=== PATIENT | male | born 2000 | race Caucasian/White ===

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

== ENCOUNTER 2019-06-11 15:14 | Emergency (ER) | payer BC, OTHER ==
[~2019-06-11] VITALS: Ht 173 cm; Wt 63.7 kg
[2019-06-11] MEDS ORDERED: ONDANSETRON 4 MG/2 ML (SDV) Z0FRAN IVP ONE (15:30)
[2019-06-11] MEDS ORDERED: KETOROLAC 15 MG/ML VIAL IVP ONE (15:30)
[2019-06-11] MEDS ORDERED: RT-ALBUTEROL/IPRATROPIUM 3 ML (DUONEB) VIAL INH ONE (15:30)
[2019-06-11] MEDS ORDERED: LORazepam INJ 2 MG/ML (ATIVAN) VIAL IVP ONE (15:30)
[2019-06-11] MEDS ORDERED: ASPIRIN 81 MG CHEW (CHILDREN'S ASA) PO ONE (15:30)
[2019-06-11 15:35] LABS: HEMATOCRIT 43 % (40-54); HEMOGLOBIN 15.4 G/DL (13.3-17.7); MEAN CORPUSCULAR HEMOGLOBIN 30 PG (25-34); MEAN CORPUSCULAR VOLUME 86 FL (80-99); WHITE BLOOD COUNT 8.3 10^3/uL (4.3-11.0)
[2019-06-11 15:36] LABS: BASOPHILS % (AUTO) 1 % (0-10); EOSINOPHILS % (AUTO) 1 % (0-10); LYMPHOCYTES # (AUTO) 1.3 X 10^3 (1.0-4.0); LYMPHOCYTES % (AUTO) 16 % (12-44); MEAN CORPUSCULAR HGB CONC 36 G/DL (32-36); MEAN PLATELET VOLUME 8.9 FL (7.4-10.4); MONOCYTES # (AUTO) 0.8 X 10^3 (0.0-1.0); MONOCYTES % (AUTO) 9 % (0-12); NEUTROPHILS # (AUTO) 6.1 X 10^3 (1.8-7.8); NEUTROPHILS % (AUTO) 74 % (42-75); PLATELET COUNT 244 10^3/uL (130-400); RED CELL DISTRIBUTION WIDTH 12.6 % (10.0-14.5)
--- NOTE | 2019-06-11 15:41 | Diagnostic Imaging Report ---
INDICATION: Shortness of breath and chest pain. Portable chest 3:28 PM Heart size and pulmonary vascularity are normal. Lungs are clear. There are no effusions or pneumothoraces. IMPRESSION: Negative chest. Dictated by: Dictated on workstation # [id number]
[2019-06-11 16:14] LABS: BUN/CREATININE RATIO 17; CARBON DIOXIDE 24 MMOL/L (21-32); CHLORIDE 104 MMOL/L (98-107); GFR ESTIMATED > 60; GLUCOSE 113 MG/DL (70-105); POTASSIUM 3.8 MMOL/L (3.6-5.0); SODIUM 142 MMOL/L (135-145)
[2019-06-11 16:15] LABS: ALANINE AMINOTRANSFERASE 475 U/L (0-55); ALBUMIN 4.9 GM/DL (3.2-4.5); ALKALINE PHOSPHATASE 110 U/L (40-136); BILIRUBIN,TOTAL 0.9 MG/DL (0.1-1.0); CALCIUM 9.6 MG/DL (8.5-10.1); TOTAL PROTEIN 7.8 GM/DL (6.4-8.2)
--- NOTE | 2019-06-11 16:21 | ED General ---
General Chief Complaint: Chest Pain Stated Complaint: CHEST PAIN/PRESSURE Nursing Triage Note: Patient reports chest pain/pressure, nausea, and shortness of breath when laying supine and moving for 2 days. Nursing Sepsis Screen: No Definite Risk History of Present Illness Date Seen by Provider: Jun 11, 2019 Time Seen by Provider: 16:19 Initial Comments Patient presenting to the emergency department for evaluation of chest pressure nausea and shortness of breath when laying flat for the past 2 days. He says the pressure sensation as they're all the time but feels much more intense when he is lying flat. He says that exertion does not make his symptoms worse and neither does eating. He says that he saw his provider today and was prescribed medications that he thinks are for anxiety. He denies any vomiting diaphoresis abdominal pain fevers chills or diarrhea. He takes no medications on a regular basis and denies any medical problems. No history of sudden in his family. He is in no obvious distress with normal vital signs. Allergies and Home Medications Allergies Coded Allergies: No Known Drug Allergies (Unverified , 06/11/19) Patient Home Medication List Home Medication List Reviewed: Yes Review of Systems Review of Systems Constitutional: no symptoms reported EENTM: no symptoms reported Respiratory: short of breath Cardiovascular: chest pain Gastrointestinal: nausea Genitourinary: no symptoms reported Musculoskeletal: no symptoms reported Skin: no symptoms reported Psychiatric/Neurological: No Symptoms Reported All Other Systems Reviewed Negative Unless Noted: Yes Past Wgthxdr-Qnywhh-Zzbmmw Hx Patient Social History Alcohol Use: Denies Use Recreational Drug Use: No Smoking Status: Never a Smoker 2nd Hand Smoke Exposure: No Recent Foreign Travel: No Contact w/Someone Who Travel: No Recent Infectious Disease Expo: No Recent Hopitalizations: No Physical Abuse: No Sexual Abuse: No Mistreated: No Fear: No Seasonal Allergies Seasonal Allergies: No Past Medical History Surgeries: Yes (right ulnar nerve April 2019) Respiratory: No Cardiac: No Neurological: No Genitourinary: No Gastrointestinal: No Musculoskeletal: No Endocrine: No HEENT: No Cancer: No Psychosocial: No Integumentary: No Physical Exam Vital Signs Vital Signs - First Documented Capillary Refill : Less Than 3 Seconds Height, Weight, BMI Height: '" Weight: lbs. oz. kg; 21.00 BMI Method: General Appearance: No Apparent Distress, WD/WN HEENT: PERRL/EOMI Neck: Supple Respiratory: No Respiratory Distress, Decreased Breath Sounds Cardiovascular: Regular Rate, Rhythm Gastrointestinal: Non Tender, Soft Back: Normal Inspection Extremity: Normal Capillary Refill Neurologic/Psychiatric: Alert, Oriented x3 Skin: Warm/Dry Progress/Results/Core Measures Suspected Sepsis Recent Fever Within 48 Hours: No Infection Criteria Present: None New/Unexplained Altered Menta: No Sepsis Screen: No Definite Risk SIRS Temperature: Pulse: 99 Respiratory Rate: 20 Laboratory Tests 06/11/19 15:25: White Blood Count 8.3 Blood Pressure 143 /87 Mean: 105 Laboratory Tests 06/11/19 15:25: Creatinine 1.00, Platelet Count 244, Total Bilirubin 0.9 Results/Orders Lab Results Laboratory Tests Test 06/11/19 15:25 Range/Units White Blood Count 8.3 4.3-11.0 10^3/uL Red Blood Count 5.06 4.35-5.85 10^6/uL Hemoglobin 15.4 13.3-17.7 G/DL Hematocrit 43 40-54 % Mean Corpuscular Volume 86 80-99 FL Mean Corpuscular Hemoglobin 30 25-34 PG Mean Corpuscular Hemoglobin Concent 36 32-36 G/DL Red Cell Distribution Width 12.6 10.0-14.5 % Platelet Count 244 130-400 10^3/uL Mean Platelet Volume 8.9 7.4-10.4 FL Neutrophils (%) (Auto) 74 42-75 % Lymphocytes (%) (Auto) 16 12-44 % Monocytes (%) (Auto) 9 0-12 % Eosinophils (%) (Auto) 1 0-10 % Basophils (%) (Auto) 1 0-10 % Neutrophils # (Auto) 6.1 1.8-7.8 X 10^3 Lymphocytes # (Auto) 1.3 1.0-4.0 X 10^3 Monocytes # (Auto) 0.8 0.0-1.0 X 10^3 Eosinophils # (Auto) 0.0 0.0-0.3 10^3/uL Basophils # (Auto) 0.0 0.0-0.1 10^3/uL D-Dimer < 0.27 0.00-0.49 UG/ML Sodium Level 142 135-145 MMOL/L Potassium Level 3.8 3.6-5.0 MMOL/L Chloride Level 104 98-107 MMOL/L Carbon Dioxide Level 24 21-32 MMOL/L Anion Gap 14 5-14 MMOL/L Blood Urea Nitrogen 17 7-18 MG/DL Creatinine 1.00 0.60-1.30 MG/DL Estimat Glomerular Filtration Rate > 60 BUN/Creatinine Ratio 17 Glucose Level 113 H 70-105 MG/DL Calcium Level 9.6 8.5-10.1 MG/DL Corrected Calcium 8.5-10.1 MG/DL Total Bilirubin 0.9 0.1-1.0 MG/DL Aspartate Amino Transf (AST/SGOT) 108 H 5-34 U/L Alanine Aminotransferase (ALT/SGPT) 475 H 0-55 U/L Alkaline Phosphatase 110 40-136 U/L Troponin I < 0.30 <0.30 NG/ML Total Protein 7.8 6.4-8.2 GM/DL Albumin 4.9 H 3.2-4.5 GM/DL My Orders Orders - ORQUIDEA METZGER DO Cbc With Automated Diff (06/11/19 15:22) Comprehensive Metabolic Panel (06/11/19 15:22) Troponin I Fs (06/11/19 15:22) Fibrin Degradation Products (06/11/19 15:22) Ekg Tracing (06/11/19 15:22) Chest 1 View Ap/Pa Only (06/11/19 15:22) Lorazepam Injection (Ativan Injection) (06/11/19 15:30) Albuterol/Ipra Inhalation Soln (Duoneb I (06/11/19 15:30) Ketorolac Injection (Toradol Injection) (06/11/19 15:30) Ondansetron Injection (Zofran Injectio (06/11/19 15:30) Aspirin Chewable Tablet (Baby Aspirin Ch (06/11/19 15:30) Svn Small Volume Nebulizer (06/11/19 15:22) Ns Iv 1000 Ml (Sodium Chloride 0.9%) (06/11/19 16:30) Medications Given in ED Current Medications Medications Dose Ordered Sig/Bhupinder Route Start Time Stop Time Status Last Admin Dose Admin Albuterol/ Ipratropium 3 ml ONCE ONCE INH 06/11/19 15:30 06/11/19 15:31 DC 06/11/19 15:30 3 ML Aspirin 324 mg ONCE ONCE PO 06/11/19 15:30 06/11/19 15:31 DC 06/11/19 15:30 324 MG Ketorolac Tromethamine 15 mg ONCE ONCE IVP 06/11/19 15:30 06/11/19 15:31 DC 06/11/19 15:32 15 MG Lorazepam 1 mg ONCE ONCE IVP 06/11/19 15:30 06/11/19 15:31 DC 06/11/19 15:31 1 MG Ondansetron HCl 4 mg ONCE ONCE IVP 06/11/19 15:30 06/11/19 15:31 DC 06/11/19 15:30 4 MG Vital Signs/I&O 06/11/19 06/11/19 15:15 15:15 Temp 36.1 Pulse 99 Resp 20 B/P (MAP) 143/87 (105) Pulse Ox 97 O2 Delivery Room Air Room Air Capillary Refill : Less Than 3 Seconds Blood Pressure Mean: 105 Progress Note : Progress Note Differential diagnosis includes pericarditis given the description of the symptoms. Bronchospasm anxiety or GI causes are possibilities as well. Laboratory workup came back normal except for findings of transaminitis. Chest x-ray appears normal. I asked patient about Tylenol use and he says he takes Tylenol PM every night. Says he does not drink alcohol. I told him that he may need to have further testing done on his liver including imaging and further testing of his liver including hepatitis panel which we cannot do here. I told him to stop taking Tylenol for now and follow-up with his primary care provider within 2-3 days or early next week. His heart score is equal to 0 and he appears well with normal vital signs. He says that the breathing treatment made him feel better more than anything else and he does not have the pressure any longer. He certainly could have bronchospasm causing his symptoms. I told him that I'll prescribe him an inhaler and write him for ibuprofen and told to start the 2 medications are prescribed for him today follow-up as soon as possible and come back to the ED sooner with worsening pain shortness of breath with or general concerns. Patient aware and agreeable with plan for discharge and verbalized understanding of the above instructions. Departure Impression Primary Impression: Chest pain Additional Impressions: Bronchospasm Transaminitis Disposition: 01 HOME, SELF-CARE Condition: Stable Departure-Patient Inst. Referrals: NO,LOCAL PHYSICIAN (PCP/Family) Primary Care Physician Patient Instructions: Chest Pain (DC) Add. Discharge Instructions: Stop taking Tylenol. Follow with PCP. Come back with any concerns. All discharge instructions reviewed with patient and/or family. Voiced understanding. Scripts Ibuprofen (Ibuprofen) 400 Mg Tablet 400 MG PO Q8H PRN for PAIN-SEVERE (8-10) MDD 1200 MG for 7 Days, TAB Prov: ORQUIDEA METZGER DO 06/11/19 Albuterol Sulfate (PROAIR HFA) 1 Puff Puff 2 PUFF IH Q4H, #1 INHALER 1 PUFF = 90 MCG Prov: ORQUIDEA METZGER DO 06/11/19 ORQUIDEA METZGER DO Jun 11, 2019 16:21
[2019-06-11] MEDS ORDERED: NS IV 1000 ML 1,000 ML IV SCH (16:30)
[2019-06-11] MEDS ORDERED: IBUP-1779 PO (16:56)
[2019-06-11] MEDS ORDERED: RT-ALBUINH IH (16:56)
[2019-06-11 17:09] VITALS: BP 113/70
== END 2019-06-11 17:05 | disposition home or self-care (01) ==
LOC: EDUNIT# 15:14 → ER FS 15:15
DX: J98.01 Acute bronchospasm (principal); R74.0 Nonspecific elevation of levels of transaminase and lactic acid dehydrogenase [LDH]; F41.9 Anxiety disorder, unspecified
CPT/HCPCS: 36415; 71045; 80053; 84484; 85025; 85379; 93005

== ENCOUNTER 2019-06-16 17:24 | Emergency (ER) | payer BC, OTHER ==
[~2019-06-16] VITALS: Ht 174 cm; Wt 64.5 kg
[~2019-06-16 17:24] MED LIST: IBUP-1779 PO; RT-ALBUINH IH
[2019-06-16] MEDS ORDERED: LORazepam 0.5 MG (ATIVAN) TABLET PO STA (17:34)
[2019-06-16] MEDS ORDERED: HYDR50CA3 PO (17:39)
--- NOTE | 2019-06-16 17:48 | Diagnostic Imaging Report ---
INDICATION: Chest pain. Comparison made with prior examination 06/11/2019. PA and lateral views were obtained. FINDINGS: The heart size, mediastinal configuration, and pulmonary vascularity are within normal limits. There is no pleural effusion, pneumothorax, or pneumonia. The osseous structures are unremarkable. IMPRESSION: No acute cardiopulmonary abnormality. Dictated by: Dictated on workstation # [id number]
--- NOTE | 2019-06-16 19:01 | ED General ---
General Chief Complaint: Chest Pain Stated Complaint: CHEST PAIN Nursing Triage Note: Patient reports sharp chest pain feeling like he can't catch his breath. Nursing Sepsis Screen: No Definite Risk Source of Information: Patient History of Present Illness Date Seen by Provider: Jun 16, 2019 Time Seen by Provider: 19:00 Initial Comments 18 yo M presents with recurrent pleuritic chest pain. He states that he has had continued pain ever since he was seen. He has increased pain when he tries to take a deep breath. He feels like he can't breathe at times. It seems worse when he lays back. He has some nausea but no vomiting. He also has been having some diarrhea. He has epigastric abdominal pain. He has been feeling short of breath with this. He denies any pain or swelling in his legs. He did have recent surgery in April for his elbow. He feels dizzy and lightheaded especially want he changes positions Allergies and Home Medications Allergies Coded Allergies: No Known Drug Allergies (Unverified , 06/11/19) Home Medications Albuterol Sulfate 1 Puff Puff, 2 PUFF IH Q4H 1 PUFF = 90 MCG Prescribed by: ORQUIDEA METZGER on 06/11/19 165 Dicyclomine HCl 20 Mg Tablet, 20 MG PO Q6H Prescribed by: DEBBY Lockhart ENYART on 06/16/192211 Ibuprofen 400 Mg Tablet, 400 MG PO Q8H PRN for PAIN-SEVERE (8-10) Prescribed by: ORQUIDEA METZGER on 06/11/19 165 Ondansetron 4 Mg Tab.rapdis, 4 MG PO Q6H PRN for NAUSEA/VOMITING Prescribed by: DEBBY CHRISTIEYART on 06/16/192211 Pantoprazole Sodium 40 Mg Tablet.dr, 40 MG PO DAILY Prescribed by: DEBBY Lockhart ENYART on 06/16/192211 Prednisone 20 Mg Tab, 40 MG PO DAILY Prescribed by: DEBBY ANGLINRT on 06/16/192211 Patient Home Medication List Home Medication List Reviewed: Yes Review of Systems Review of Systems Constitutional: see HPI; No chills, No diaphoresis; dizziness (especially with changing positions); No fever; malaise, weakness EENTM: no symptoms reported Respiratory: No cough, No hemoptysis; short of breath; No stridor, No wheezing Cardiovascular: chest pain (pleuritic chest pain); No edema, No palpitations Gastrointestinal: abdominal pain (epigastric), diarrhea, nausea; No vomiting Genitourinary: No dysuria, No frequency, No pain Musculoskeletal: no symptoms reported Skin: No rash Psychiatric/Neurological: Anxiety; Denies Headache Hematologic/Lymphatic: No Symptoms Reported Immunological/Allergic: no symptoms reported Past Dtiwqmi-Ejujmv-Hiiziq Hx Past Med/Social Hx: Reviewed Nursing Past Med/Soc Hx Patient Social History Alcohol Use: Denies Use Recreational Drug Use: No 2nd Hand Smoke Exposure: No Recent Foreign Travel: No Contact w/Someone Who Travel: No Recent Infectious Disease Expo: No Recent Hopitalizations: No Seasonal Allergies Seasonal Allergies: No Past Medical History Surgeries: Yes (right ulnar nerve April 2019) Respiratory: No Cardiac: No Neurological: No Genitourinary: No Gastrointestinal: No Musculoskeletal: No Endocrine: No HEENT: No Cancer: No Psychosocial: Yes Anxiety Integumentary: No Blood Disorders: No Physical Exam Vital Signs Vital Signs - First Documented 06/16/19 06/16/19 17:38 17:41 Temp 36.6 Pulse 123 Resp 18 B/P (MAP) 140/97 (111) Pulse Ox 98 O2 Delivery Room Air Capillary Refill : Less Than 3 Seconds Height, Weight, BMI Height: '" Weight: lbs. oz. kg; 21.00 BMI Method: General Appearance: WD/WN, Mild Distress HEENT: PERRL/EOMI, Normal ENT Inspection, Pharynx Normal; No Tonsillar Exudate, No Tonsillar Enlargement Neck: Full Range of Motion, Normal Inspection, Non Tender, Supple; No Carotid Bruit Respiratory: Chest Non Tender, Lungs Clear, Normal Breath Sounds, No Accessory Muscle Use, No Respiratory Distress Cardiovascular: Normal Peripheral Pulses, Systolic Murmur (3/6 systolic ejection murmur), Tachycardia Gastrointestinal: Normal Bowel Sounds, No Pulsatile Mass, Soft; No Distended, No Guarding, No Mass, No Rebound; Tenderness (epigastric) Rectal: Deferred Extremity: Normal Capillary Refill, Normal Inspection, No Pedal Edema Neurologic/Psychiatric: Alert, Oriented x3, No Motor/Sensory Deficits, Normal Mood/Affect, manufacturing tech II-XII Norm as Tested Skin: Normal Color, Warm/Dry Progress/Results/Core Measures Suspected Sepsis Recent Fever Within 48 Hours: No Infection Criteria Present: None New/Unexplained Altered Menta: No Sepsis Screen: No Definite Risk SIRS Temperature: Pulse: 123 Respiratory Rate: 18 Laboratory Tests 06/16/19 19:20: White Blood Count 8.6 Blood Pressure 140 /97 Mean: 111 Laboratory Tests 06/16/19 19:20: Creatinine 0.76, INR Comment 1.0, Platelet Count 253, Total Bilirubin 1.3H Results/Orders Lab Results Laboratory Tests Test 06/16/19 19:20 Range/Units White Blood Count 8.6 4.3-11.0 10^3/uL Red Blood Count 4.98 4.35-5.85 10^6/uL Hemoglobin 15.2 13.3-17.7 G/DL Hematocrit 42 40-54 % Mean Corpuscular Volume 84 80-99 FL Mean Corpuscular Hemoglobin 31 25-34 PG Mean Corpuscular Hemoglobin Concent 36 32-36 G/DL Red Cell Distribution Width 12.5 10.0-14.5 % Platelet Count 253 130-400 10^3/uL Mean Platelet Volume 8.6 7.4-10.4 FL Neutrophils (%) (Auto) 72 42-75 % Lymphocytes (%) (Auto) 16 12-44 % Monocytes (%) (Auto) 10 0-12 % Eosinophils (%) (Auto) 1 0-10 % Basophils (%) (Auto) 0 0-10 % Neutrophils # (Auto) 6.2 1.8-7.8 X 10^3 Lymphocytes # (Auto) 1.4 1.0-4.0 X 10^3 Monocytes # (Auto) 0.9 0.0-1.0 X 10^3 Eosinophils # (Auto) 0.1 0.0-0.3 10^3/uL Basophils # (Auto) 0.0 0.0-0.1 10^3/uL Prothrombin Time 13.9 12.2-14.7 SEC INR Comment 1.0 0.8-1.4 Activated Partial Thromboplast Time 27 24-35 SEC Sodium Level 132 L 135-145 MMOL/L Potassium Level 3.2 L 3.6-5.0 MMOL/L Chloride Level 93 L 98-107 MMOL/L Carbon Dioxide Level 22 21-32 MMOL/L Anion Gap 17 H 5-14 MMOL/L Blood Urea Nitrogen 6 L 7-18 MG/DL Creatinine 0.76 0.60-1.30 MG/DL Estimat Glomerular Filtration Rate > 60 BUN/Creatinine Ratio 8 Glucose Level 104 70-105 MG/DL Calcium Level 8.9 8.5-10.1 MG/DL Corrected Calcium 8.5-10.1 MG/DL Magnesium Level 1.8 1.6-2.4 MG/DL Total Bilirubin 1.3 H 0.1-1.0 MG/DL Aspartate Amino Transf (AST/SGOT) 95 H 5-34 U/L Alanine Aminotransferase (ALT/SGPT) 335 H 0-55 U/L Alkaline Phosphatase 101 40-136 U/L Troponin I < 0.30 <0.30 NG/ML Pro-B-Type Natriuretic Peptide 10.0 <75.0 PG/ML Total Protein 7.6 6.4-8.2 GM/DL Albumin 4.9 H 3.2-4.5 GM/DL Lipase 31 8-78 U/L My Orders Orders - ENYARTDEBBY MD Cbc With Automated Diff (06/16/19 19:15) Magnesium (06/16/19 19:15) Comprehensive Metabolic Panel (06/16/19 19:15) Protime With Inr (06/16/19 19:15) Partial Thromboplastin Time (06/16/19 19:15) O2 (06/16/19 19:15) Monitor-Rhythm Ecg Trace Only (06/16/19 19:15) Ed Iv/Invasive Line Start (06/16/19 19:15) Lipase (06/16/19 19:15) Troponin I Fs (06/16/19 19:15) Probnp Fs (06/16/19 19:15) Ns Iv 1000 Ml (Sodium Chloride 0.9%) (06/16/19 19:15) Ondansetron Injection (Zofran Injectio (06/16/19 19:15) Fentanyl Injection (Sublimaze Injection (06/16/19 19:15) Ct [place] Chest/Noang Abd-Pelv W (06/16/19 19:15) Iohexol Injection (Omnipaque 350 Mg/Ml 1 (06/16/19 19:30) Received Contrast (Hold Metformin- Contr (06/16/19 19:30) Sodium Chloride Flush (Catheter Flush Sy (06/16/19 19:30) Ns (Ivpb) (Sodium Chloride 0.9% Ivpb Bag (06/16/19 19:30) Methylprednisolone Sod Succ (Solu-Medrol (06/16/19 22:02) Rx-Hydrocodone/Apap 5-325 Mg (Rx-Vicodin (06/16/19 22:15) Medications Given in ED Current Medications Medications Dose Ordered Sig/Bhupinder Route Start Time Stop Time Status Last Admin Dose Admin Acetaminophen/ Hydrocodone Bitart 1 ea Q6H PRN PO 06/16/19 22:15 06/16/19 22:21 DC 06/16/19 22:09 1 EA Iohexol 100 ml ONCE ONCE IV 06/16/19 19:30 06/16/19 19:31 DC 06/16/19 19:40 100 ML Sodium Chloride 10 ml NEEDED PRN IV 06/16/19 19:30 06/16/19 22:21 DC 06/16/19 19:40 10 ML Sodium Chloride 100 ml ONCE ONCE IV 06/16/19 19:30 06/16/19 19:31 DC 06/16/19 19:40 80 ML Vital Signs/I&O 06/16/19 06/16/19 06/16/19 17:38 17:41 22:22 Temp 36.6 Pulse 123 98 Resp 18 18 B/P (MAP) 140/97 (111) 138/76 Pulse Ox 98 100 O2 Delivery Room Air Room Air Capillary Refill : Less Than 3 Seconds Blood Pressure Mean: 111 Progress Note #1: Progress Note Electrocardiogram and chest x-ray from dayshift were reviewed. Add on blood work and CT scan of the chest to evaluate for blood clot as well as CT of the abdomen and pelvis with contrast to evaluate his diarrhea and elevated liver enzymes with epigastric pain. Give IV fluids for hydration since his heart rate does go up with change in position and some of his symptoms are consistent with dehydration and orthostasis. Zofran for nausea. Fentanyl for pain Progress Note #2: Progress Note Reviewed with the patient that the labs and CT scan were not showing any acute significant abnormality change from his recent visit. He had no signs of blood clots or pneumonia or effusion on his CT scan chest. His CT of the abdomen and pelvis was not showing any acute findings. His blood work appeared stable from his recent visit with mild improvement of his BLT and AST. He did have mild elevation of his total bilirubin however his liver and gallbladder all appeared within normal limits on the CT scan. Patient stated that he was feeling better with treatment here in the ED. His pain was down to 3 out of 10 and although has not gone it was significantly improved. Counseled that while he had no specific diagnosis from testing here several life threatening diagnosis were ruled out. Advised to check with the clinic and that he might need to see cardiology or GI. He may need to have testing such as a scope to look at the lying of his stomach and esophagus or testing to look at his gallbladder. He may also need to have cardiology testing to look into his pleuritic chest pain. Will change to a steroid for increased anti-inflammatory effect. Use a proton pump inhibitor for possible acid reflux symptoms. Zofran for nausea. Bentyl for pain and diarrhea. Send with a few hydrocodone for more severe pain. Counseled that he would need to follow-up through the clinic for more advanced testing t wood what was available through the emergency department ECG Initial ECG Impression Date: Jun 16, 2019 Initial ECG Impression Time: 17:32 Initial ECG Rate: 120 Initial ECG Rhythm: S.Tach Comment Sinus tachycardia with a heart rate of 120 beats for minute. No acute ST elevation. CT interval 171 ms. QT interval 307 ms and a QTc interval 434 ms. No prior tracing available for comparison. Diagnostic Imaging Diagonstic Imaging: Xray Plain Films/CT/US/NM/MRI: chest Comments [facility]. [place], [place] NAME: ALDAIR LUNA [facility] REC#: [id number] PT STATUS: REG ER : 2000 PHYSICIAN: CUCO VALLEJO MD ADMIT DATE: 06/16/19/ER FS Signed Date of Exam:06/16/19 CHEST PA/LAT (2 VIEW) INDICATION: Chest pain. Comparison made with prior examination 06/11/2019. PA and lateral views were obtained. FINDINGS: The heart size, mediastinal configuration, and pulmonary vascularity are within normal limits. There is no pleural effusion, pneumothorax, or pneumonia. The osseous structures are unremarkable. IMPRESSION: No acute cardiopulmonary abnormality. Dictated by: Dictated on workstation # [id number] Dict: 06/16/19 1746 Trans: 06/16/19 1836 [id number] Interpreted by: VON BERRY MD Electronically signed by: VON BERRY MD 06/16/19 1836 Diagonstic Imaging: CT Plain Films/CT/US/NM/MRI: chest, abdomen, pelvis Comments [facility]. [place], [place] NAME: ALDAIR LUNA [facility] REC#: [id number] PT STATUS: REG ER : 2000 PHYSICIAN: DEBBY WORRELL MD ADMIT DATE: 06/16/19/ER FS Signed Date of Exam:06/16/19 CT CAROLIN CHEST/NOANG ABD-PELV W INDICATION: Chest pain and recent surgery TECHNIQUE: Multiple contiguous axial images were obtained through the chest, abdomen, and pelvis after the uneventful bolus administration of intravenous contrast. MIP reconstructions were then performed. FINDINGS: There are no primary nodules, masses, or infiltrates. There is no pleural or pericardial fluid. There is no pneumothorax. There is no pathologically enlarged adenopathy in the chest. The thoracic aorta is normal in caliber and without evidence of dissection. There are no filling defects seen within the pulmonary arteries to suggest a pulmonary embolism. The visualized intraabdominal structures are unremarkable. The osseous structures are unremarkable. The liver is normal in size without focal lesions. Gallbladder is unremarkable. There is no biliary duct dilatation. Spleen is normal. Pancreas and adrenal glands are unremarkable. Kidneys are normal in appearance. The aorta is nonaneurysmal. Bowel gas pattern is nonspecific. There is no free air. There is no ascites. There are no focal inflammatory changes. Bladder is normal. There is no pelvic mass, adenopathy or free fluid. There is bilateral spondylolysis at L5 with slight anterolisthesis of L5 on S1. The osseous structures are otherwise unremarkable. IMPRESSION: No acute abnormality in the chest. Specifically, there is no evidence of a pulmonary embolism or aortic dissection. 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 No acute abnormality in the abdomen or pelvis. Dictated by: Dictated on workstation # [id number] Dict: 06/16/192005 Trans: 06/16/192016 JOSUÉ [id number] Interpreted by: VON BERRY MD Electronically signed by: VON BERRY MD 06/16/19 2017 Departure Impression Primary Impression: Pleuritic chest pain Additional Impressions: Elevated LFTs Epigastric abdominal pain Diarrhea Qualified Codes: R19.7 - Diarrhea, unspecified Nausea alone Dehydration Disposition: 01 HOME, SELF-CARE Condition: Improved Departure-Patient Inst. Decision time for Depature: 22:05 Referrals: MAKENZIE DODGE MD FACP FACC CCDS NO,LOCAL PHYSICIAN (PCP) Primary Care Physician [facility] Patient Instructions: Acute Abdomen (Belly Pain), Adult (DC), Dehydration, Adult (DC), Diarrhea in Adolescents and Adults, Nausea and Vomiting, Adult (DC), Pleuritic Chest Pain (DC) Add. Discharge Instructions: Stay well hydrated and drink plenty of water or electrolyte drinks Use the medicine for acid and nausea to help with stomach pain and nausea Use the steroid to help with inflammation and pleuritic sharp chest pains. Check with clinic and if still having problems you may need to have tests to look at the lining of your stomach, the function of your gallbladder, or see cardiology for testing of your heart. All discharge instructions reviewed with patient and/or family. Voiced underst anding. Scripts Ondansetron (Ondansetron Odt) 4 Mg Tab.rapdis 4 MG PO Q6H PRN for NAUSEA/VOMITING for 2 Days, #8 TAB 0 Refills Prov: DEBBY WORRELL MD 06/16/19 Dicyclomine HCl (Dicyclomine HCl) 20 Mg Tablet 20 MG PO Q6H for abdominal pain/diarrhea for 7 Days, #30 TAB 0 Refills Prov: DEBBY WORRELL MD 06/16/19 Prednisone (Prednisone) 20 Mg Tab 40 MG PO DAILY for pleuritic chest pain for 5 Days, #10 TAB 0 Refills Prov: DEBBY WORRELL MD 06/16/19 Pantoprazole Sodium (Pantoprazole Sodium) 40 Mg Tablet.dr 40 MG PO DAILY for stomach pain/acid for 30 Days, #30 TAB 0 Refills Prov: DEBBY WORRELL MD 06/16/19 DEBBY WORRELL MD Jun 16, 2019 19:01
[2019-06-16] MEDS ORDERED: ONDANSETRON 4 MG/2 ML (SDV) Z0FRAN IVP STA (19:15)
[2019-06-16] MEDS ORDERED: NS IV 1000 ML 1,000 ML IV STA (19:15)
[2019-06-16] MEDS ORDERED: fentaNYL INJECTION 100 MCG/2 ML AMP IVP STA (19:15)
[2019-06-16] MEDS ORDERED: CATHETER FLUSH 10 ML SYR IV PRN (19:30)
[2019-06-16] MEDS ORDERED: IOHEXOL 350 MG/ML 100 ML (OMNIPAQUE 350) VIAL IV ONE (19:30)
[2019-06-16] MEDS ORDERED: NS 100 ML (IVPB) BAG IV ONE (19:30)
[2019-06-16] MEDS ORDERED: HOLD METFORMIN - RECEIVED CONTRAST 20 ML VIAL IV SCH (19:30)
[2019-06-16 19:31] LABS: BASOPHILS % (AUTO) 0 % (0-10); EOSINOPHILS # (AUTO) 0.1 10^3/uL (0.0-0.3); EOSINOPHILS % (AUTO) 1 % (0-10); HEMATOCRIT 42 % (40-54); HEMOGLOBIN 15.2 G/DL (13.3-17.7); LYMPHOCYTES # (AUTO) 1.4 X 10^3 (1.0-4.0); LYMPHOCYTES % (AUTO) 16 % (12-44); MEAN CORPUSCULAR HEMOGLOBIN 31 PG (25-34); MEAN CORPUSCULAR HGB CONC 36 G/DL (32-36); MEAN CORPUSCULAR VOLUME 84 FL (80-99); MEAN PLATELET VOLUME 8.6 FL (7.4-10.4); MONOCYTES # (AUTO) 0.9 X 10^3 (0.0-1.0); MONOCYTES % (AUTO) 10 % (0-12); NEUTROPHILS # (AUTO) 6.2 X 10^3 (1.8-7.8); NEUTROPHILS % (AUTO) 72 % (42-75); PLATELET COUNT 253 10^3/uL (130-400); RED CELL DISTRIBUTION WIDTH 12.5 % (10.0-14.5); WHITE BLOOD COUNT 8.6 10^3/uL (4.3-11.0)
[2019-06-16 19:43] LABS: PROTHROMBIN TIME PATIENT 13.9 SEC (12.2-14.7)
[2019-06-16 19:50] LABS: ALANINE AMINOTRANSFERASE 335 U/L (0-55); ALBUMIN 4.9 GM/DL (3.2-4.5); ALKALINE PHOSPHATASE 101 U/L (40-136); BILIRUBIN,TOTAL 1.3 MG/DL (0.1-1.0); BUN/CREATININE RATIO 8; CALCIUM 8.9 MG/DL (8.5-10.1); CARBON DIOXIDE 22 MMOL/L (21-32); CHLORIDE 93 MMOL/L (98-107); CREATININE SERUM 0.76 MG/DL (0.60-1.30); GFR ESTIMATED > 60; GLUCOSE 104 MG/DL (70-105); LIPASE 31 U/L (8-78); MAGNESIUM 1.8 MG/DL (1.6-2.4); POTASSIUM 3.2 MMOL/L (3.6-5.0); SODIUM 132 MMOL/L (135-145); TOTAL PROTEIN 7.6 GM/DL (6.4-8.2)
--- NOTE | 2019-06-16 20:14 | Diagnostic Imaging Report ---
INDICATION: Chest pain and recent surgery TECHNIQUE: Multiple contiguous axial images were obtained through the chest, abdomen, and pelvis after the uneventful bolus administration of intravenous contrast. MIP reconstructions were then performed. FINDINGS: There are no primary nodules, masses, or infiltrates. There is no pleural or pericardial fluid. There is no pneumothorax. There is no pathologically enlarged adenopathy in the chest. The thoracic aorta is normal in caliber and without evidence of dissection. There are no filling defects seen within the pulmonary arteries to suggest a pulmonary embolism. The visualized intraabdominal structures are unremarkable. The osseous structures are unremarkable. The liver is normal in size without focal lesions. Gallbladder is unremarkable. There is no biliary duct dilatation. Spleen is normal. Pancreas and adrenal glands are unremarkable. Kidneys are normal in appearance. The aorta is nonaneurysmal. Bowel gas pattern is nonspecific. There is no free air. There is no ascites. There are no focal inflammatory changes. Bladder is normal. There is no pelvic mass, adenopathy or free fluid. There is bilateral spondylolysis at L5 with slight anterolisthesis of L5 on S1. The osseous structures are otherwise unremarkable. IMPRESSION: No acute abnormality in the chest. Specifically, there is no evidence of a pulmonary embolism or aortic dissection. 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 No acute abnormality in the abdomen or pelvis. Dictated by: Dictated on workstation # [id number]
[2019-06-16] MEDS ORDERED: methylPREDNISolone 125 MG (Solu-MEDROL) VIAL IVP STA (22:02)
[2019-06-16] MEDS ORDERED: PANT40TA3 PO (22:12)
[2019-06-16] MEDS ORDERED: PRD20T PO (22:12)
[2019-06-16] MEDS ORDERED: ONDA4TAB11 PO (22:12)
[2019-06-16] MEDS ORDERED: DICY20TA10 PO (22:12)
[2019-06-16] MEDS ORDERED: RX-HYDROCODONE/APAP 5/325 MG #4 TAB PK PO PRN (22:15)
[2019-06-16 22:22] VITALS: BP 138/76
[2019-06-19] MEDS ORDERED: ACHD5005 PO (10:34)
== END 2019-06-16 22:20 | disposition home or self-care (01) ==
LOC: EDUNIT# 17:24 → ER FS 17:24
DX: R07.81 Pleurodynia (principal); R10.13 Epigastric pain; R19.7 Diarrhea, unspecified; R11.0 Nausea; E86.0 Dehydration; R94.5 Abnormal results of liver function studies
CPT/HCPCS: 36415; 71046; 71275; 74177; 80053; 83690; 83735; 83880; 84484; 85025; 85610; 85730; 93005; 93041

== ENCOUNTER 2019-06-18 17:50 | Observation (INO) | payer BC, OTHER ==
[~2019-06-18] VITALS: Ht 175.2 cm; Wt 61.3 kg
[~2019-06-18 17:50] MED LIST changes: +DICY20TA10 PO; +HYDR50CA3 PO; +ONDA4TAB11 PO; +PANT40TA3 PO; +PRD20T PO
[2019-06-18 18:36] LABS: BASOPHILS % (AUTO) 0 % (0-10); EOSINOPHILS % (AUTO) 0 % (0-10); HEMATOCRIT 43 % (40-54); HEMOGLOBIN 15.3 G/DL (13.3-17.7); LYMPHOCYTES # (AUTO) 1.4 X 10^3 (1.0-4.0); LYMPHOCYTES % (AUTO) 12 % (12-44); MEAN CORPUSCULAR HEMOGLOBIN 31 PG (25-34); MEAN CORPUSCULAR HGB CONC 36 G/DL (32-36); MEAN CORPUSCULAR VOLUME 86 FL (80-99); MEAN PLATELET VOLUME 8.9 FL (7.4-10.4); MONOCYTES % (AUTO) 8 % (0-12); NEUTROPHILS # (AUTO) 9.5 X 10^3 (1.8-7.8); NEUTROPHILS % (AUTO) 79 % (42-75); PLATELET COUNT 269 10^3/uL (130-400); RED CELL DISTRIBUTION WIDTH 13.7 % (10.0-14.5); WHITE BLOOD COUNT 11.9 10^3/uL (4.3-11.0)
[2019-06-18 18:48] LABS: AMPHETAMINE SCREEN, URINE NEGATIVE (NEGATIVE); BARBITURATE SCREEN URINE NEGATIVE (NEGATIVE); BENZODIAZEPINES SCREEN URINE NEGATIVE (NEGATIVE); CANNABINOID SCREEN, URINE NEGATIVE (NEGATIVE); COCAINE SCREEN URINE NEGATIVE (NEGATIVE); METHADONE STAT NEGATIVE (NEGATIVE); METHAMPHETAMINE SCREEN URINE S NEGATIVE (NEGATIVE); OPIATE SCREEN URINE NEGATIVE (NEGATIVE); OXYCODONE STAT NEGATIVE (NEGATIVE); PROPOXYPHENE STAT NEGATIVE (NEGATIVE); TRICYCLIC ANTIDEPRESSANTS SCRE NEGATIVE (NEGATIVE)
[2019-06-18 18:49] LABS: PROTHROMBIN TIME PATIENT 13.5 SEC (12.2-14.7)
--- NOTE | 2019-06-18 18:49 | Diagnostic Imaging Report ---
INDICATION: Pericarditis and chest pressure. TIME OF EXAM: 6:46 PM Correlation is made with prior chest from 06/16/2019. FINDINGS: The heart size is normal. The pulmonary vascularity is unremarkable. The lungs are clear. No infiltrate, effusion or pneumothorax is detected. IMPRESSION: No acute cardiopulmonary process is detected. Dictated by: Dictated on workstation # [id number]
--- NOTE | 2019-06-18 18:53 | ED Chest Pain ---
General Chief Complaint: Cardiac/General Problems Stated Complaint: PRESSURE IN CHEST Nursing Triage Note: SENT HERE FROM DR HERNANDEZ IN [place] TO HAVE A ECHO DONE. PT STATES DAVID TALKED WITH OUR CRYPTOLOGIC SUPERVISOR. PT WAS TOLD TODAY MONDAY HE HAS PEIRCARDITIS AND HIS HAVING CHEST PRESSURE. Nursing Sepsis Screen: No Definite Risk Source: patient, old records Exam Limitations: no limitations History of Present Illness Date Seen by Provider: Jun 18, 2019 Time Seen by Provider: 18:05 Initial Comments This 18-year-old young man presents to the emergency room with complaints of chest pain, lightheadedness, and shortness of breath. He has been seen twice in the [facility] emergency room on June 11 and . He is suspected of having pericarditis or a GI pathology. Note from his last ER visit was reviewed. D- dimer was negative. Patient has had persistent chest pain despite taking prednisone, NSAIDs, and medications for GI symptoms. He was sent to the emergency room from the clinic with a request to admit and have cardiology consult and echocardiogram. He is afebrile but does report having chills at night. He reports occasional tobacco and alcohol but denies any drug use. Transaminases were elevated on prior visits. CT of the chest, abdomen and pelvis was unremarkable. He reports his legs feel weak but he denies any swelling. Allergies and Home Medications Allergies Coded Allergies: No Known Drug Allergies (Unverified , 06/11/19) Home Medications Albuterol Sulfate 1 Puff Puff, 2 PUFF IH Q4H 1 PUFF = 90 MCG Prescribed by: ORQUIDEA METZGER on 06/11/191655 Dicyclomine HCl 20 Mg Tablet, 20 MG PO Q6H Prescribed by: DEBBY Lockhart ENYART on 06/16/192211 Ibuprofen 400 Mg Tablet, 400 MG PO Q8H PRN for PAIN-SEVERE (8-10) Prescribed by: ORQUIDEA METZGER on 06/11/19 165 Ondansetron 4 Mg Tab.rapdis, 4 MG PO Q6H PRN for NAUSEA/VOMITING Prescribed by: DEBBY ANGLINRT on 06/16/192211 Pantoprazole Sodium 40 Mg Tablet.dr, 40 MG PO DAILY Prescribed by: DEBBY Lockhart ENYART on 06/16/192211 Prednisone 20 Mg Tab, 40 MG PO DAILY Prescribed by: DEBBY CHRISTIEYART on 06/16/192211 Patient Home Medication List Home Medication List Reviewed: Yes Review of Systems Review of Systems Constitutional: see HPI EENTM: No Symptoms Reported Respiratory: See HPI Cardiovascular: See HPI Gastrointestinal: See HPI Genitourinary: No Symptoms Reported Musculoskeletal: no symptoms reported Skin: no symptoms reported Psychiatric/Neurological: No Symptoms Reported Endocrine: No Symptoms Reported Hematologic/Lymphatic: No Symptoms Reported Past Orseenv-Tnifyb-Rjvolz Hx Past Med/Social Hx: Reviewed Nursing Past Med/Soc Hx Patient Social History Alcohol Use: Occasionally Uses Recreational Drug Use: No Smoking Status: Current Everyday Smoker 2nd Hand Smoke Exposure: No Recent Foreign Travel: No Contact w/Someone Who Travel: No Recent Infectious Disease Expo: No Recent Hopitalizations: No Physical Abuse: No Sexual Abuse: No Mistreated: No Fear: No Seasonal Allergies Seasonal Allergies: No Past Medical History Surgeries: Yes (right ulnar nerve April 2019) Respiratory: No Cardiac: Yes Pericarditis Neurological: No Genitourinary: No Gastrointestinal: No Musculoskeletal: No Endocrine: No HEENT: No Cancer: No Psychosocial: Yes Anxiety Integumentary: No Blood Disorders: No Physical Exam Vital Signs Vital Signs - First Documented 06/18/19 17:57 Temp 36.8 Pulse 95 Resp 16 B/P (MAP) 125/82 (96) Pulse Ox 97 O2 Delivery Room Air Capillary Refill : Less Than 3 Seconds Height, Weight, BMI Height: '" Weight: lbs. oz. kg; 20.00 BMI Method: General Appearance: No Apparent Distress, WD/WN HEENT: PERRL/EOMI, Normal ENT Inspection, Pharynx Normal Neck: Normal Inspection Respiratory: Lungs Clear, Normal Breath Sounds, No Accessory Muscle Use, Other (anterior chest slightly tender to palpation) Cardiovascular: Regular Rate, Rhythm, No Edema, Normal Peripheral Pulses, Systolic Murmur (fairly mild systolic murmur heard in the inferior left chest) Gastrointestinal: Normal Bowel Sounds, Soft, Tenderness (mildly in epigastrium and right upper quadrant) Extremity: Normal Inspection, Non Tender, No Pedal Edema Neurologic/Psychiatric: Alert, Oriented x3, No Motor/Sensory Deficits, Normal Mood/Affect, administrative resources associate II-XII Norm as Tested Skin: Normal Color, Warm/Dry Progress/Results/Core Measures Results/Orders Lab Results My Orders Vital Signs/I&O 06/18/19 17:57 Temp 36.8 Pulse 95 Resp 16 B/P (MAP) 125/82 (96) Pulse Ox 97 O2 Delivery Room Air Blood Pressure Mean: 96 Progress Progress Note : Time: 20:18 Progress Note Workup was fairly unremarkable. Transaminases are trending down. Based on prior discussion with Dr. Evangelista and Dr. Rahman patient was admitted for observation with an order for an echocardiogram in the morning. Because of epigastric and right upper quadrant tenderness a gallbladder ultrasound was also ordered. We will continue NSAIDs, steroids, and Protonix for the time being. Cocktail was administered but did not improve the pain. Initial ECG Impression Date: Jun 18, 2019 Initial ECG Impression Time: 18:08 Initial ECG Rate: 69 Initial ECG Rhythm: Normal Sinus Initial ECG Intervals: Normal Initial ECG Impression: Normal Comment Normal sinus rhythm with no ST elevation or depression. No abnormal intervals or axis deviation. Diagnostic Imaging Diagonstic Imaging: Xray Plain Films/CT/US/NM/MRI: chest Comments Chest x-ray viewed by me and report reviewed. See report below: NAME: ALDAIR LUNA [facility] REC#: [id number] PT STATUS: REG ER : 2000 PHYSICIAN: HYACINTH MOTLEY MD ADMIT DATE: 06/18/19/ER Signed Date of Exam:06/18/19 CHEST PA/LAT (2 VIEW) INDICATION: Pericarditis and chest pressure. TIME OF EXAM: 6:46 PM Correlation is made with prior chest from 06/16/2019. FINDINGS: The heart size is normal. The pulmonary vascularity is unremarkable. The lungs are clear. No infiltrate, effusion or pneumothorax is detected. IMPRESSION: No acute cardiopulmonary process is detected. Dictated by: Dictated on workstation # [id number] Dict: 06/18/191844 Trans: 06/18/191846 [id number] Interpreted by: JEFF MANCILLA MD Electronically signed by: JEFF MANCILLA MD 06/18/191846 Departure Communication (Admissions) Time/Spoke to Admitting Phy: 18:05 Dr. Evangelista Time/Spoke to Consulting Phy: 19:[address] Rahman Impression Primary Impression: Chest wall pain Additional Impressions: Epigastric pain Dyspnea Qualified Codes: R06.02 - Shortness of breath Elevated liver enzymes Disposition: ADMITTED INPATIENT Condition: Improved Admissions Decision to Admit Reason: Admit from ER (General) Decision to Admit/Date: Jun 18, 2019 Time/Decision to Admit Time: 18:05 Departure-Patient Inst. Referrals: NO,LOCAL PHYSICIAN (PCP/Family) Primary Care Physician HYACINTH MOTLEY MD Jun 18, 2019 18:53
[2019-06-18 18:59] LABS: ALANINE AMINOTRANSFERASE 303 U/L (0-55); ALKALINE PHOSPHATASE 104 U/L (40-136); BILIRUBIN,TOTAL 0.8 MG/DL (0.1-1.0); BUN/CREATININE RATIO 20; CALCIUM 9.6 MG/DL (8.5-10.1); CARBON DIOXIDE 24 MMOL/L (21-32); CHLORIDE 105 MMOL/L (98-107); CREATININE SERUM 0.89 MG/DL (0.60-1.30); GFR ESTIMATED > 60; GLUCOSE 105 MG/DL (70-105); MAGNESIUM 2.2 MG/DL (1.6-2.4); POTASSIUM 4.1 MMOL/L (3.6-5.0); SODIUM 140 MMOL/L (135-145); TOTAL PROTEIN 7.6 GM/DL (6.4-8.2)
[2019-06-18] MEDS ORDERED: LIDOCAINE 2% VISCOUS 15 ML UDC PO ONE (19:30)
[2019-06-18] MEDS ORDERED: ANTACID SUSP 30 ML UDC (MYLANTA) PO ONE (19:30)
[2019-06-18 20:00] VITALS: BP 126/87
--- NOTE | 2019-06-18 20:00 | NUR ---
ALDAIR LUNA admitted to room 433-1, with an admitting diagnosis of CP, on 06/18/19 from ED via , accompanied by staff.ALDAIR LUNA introduced to surroundings, call light, bed controls, phone, TV, temperature control, lights, meal times, smoking policy, visitor policy, side rail policy, bathrooms and showers. Patient Rights given to patient in the handbook. ALDAIR LUNA verbalizes understanding that [facility] is not responsible for the loss or damage to any personal effects or valuables that are kept in the patients posession during their hospitalization. ALDAIR LUNA verbalizes understanding of Interdisciplinary Patient Education. Patient and/or family were informed about the Rapid Response Team and its purpose.
--- NOTE | 2019-06-18 20:08 | History & Physical-Hospitalist ---
History of Present Illness HPI/Chief Complaint CC: Presumed pericardial effusion HPI: This is a 18yoWM clinic patient of [facility] Dr Joanna Orozco who plays baseball for [employer] and majoring in [employer] and on a medical leave red shirt this year for right elbow surgery who presents to the ER with his mother who lives in [place] after Dr Orozco instructed him to go to ER for septic w/u and spoke to Dr Rahman who will perform consultation services with ECHO tomorrow for presumed pericardial effusion. Patient reports recent dx of pericarditis and not feeling well for the past few weeks. Liver enzymes have been elevated also and viral hepatitis panel has been negative per PCP. Currently he is feeling about the same and having chest pain periodically. Source: patient, family, RN/MD, old records Exam Limitations: no limitations Date Seen 06/18/19 Time Seen by a Provider: 18:45 Attending Physician Shelia Evangelista DO PCP No,Local Physician Referring Physician Date of Admission Jun 18, 2019 at 18:05 Home Medications & Allergies Home Medications Reviewed patient Home Medication Reconciliation performed by pharmacy medication reconciliations lighting engineering technician and/or nursing. Patients Allergies have been reviewed. Allergies Allergies Coded Allergies No Known Drug Allergies (Unverified06/11/19) Past Lbxrztx-Bjqodm-Nvhfwc Hx Past Med/Social Hx: Reviewed Nursing Past Med/Soc Hx, Reviewed and Corrections made Patient Social History Marrital Status: single Employed/Student: student, full-time Alcohol Use: Occasionally Uses Recreational Drug Use: No Smoking Status: Light Tobacco Smoker 2nd Hand Smoke Exposure: No Recent Foreign Travel: No Contact w/other who traveled: No Recent Hopitalizations: No Recent Infectious Disease Expo: No Seasonal Allergies Seasonal Allergies: No Past Medical History Surgeries: Orthopedic (right elbow) Cardiac: Pericarditis Psychosocial: Anxiety History of Blood Disorders: No Review of Systems Constitutional: see HPI, dizziness, malaise, weakness Cardiovascular: chest pain Physical Exam Physical Exam Vital Signs Vital Signs - First Documented 06/18/19 17:57 Temp 36.8 Pulse 95 Resp 16 B/P (MAP) 125/82 (96) Pulse Ox 97 O2 Delivery Room Air Capillary Refill : Less Than 3 Seconds Height, Weight, BMI Height: '" Weight: lbs. oz. kg; 20.00 BMI Method: General Appearance: No Apparent Distress Eyes: Right Eye Normal Inspection, Right Eye PERRL HEENT: PERRL/EOMI, TMs Normal, Normal ENT Inspection, Pharynx Normal, Moist Mucous Membranes Neck: Full Range of Motion, Normal Inspection, Non Tender Respiratory: Chest Non Tender, Lungs Clear, Normal Breath Sounds, No Accessory Muscle Use, No Respiratory Distress Cardiovascular: Regular Rate, Rhythm, No Edema, No Gallop, No JVD, Normal Peripheral Pulses, Systolic Murmur, Friction Rub Gastrointestinal: Normal Bowel Sounds, No Organomegaly, No Pulsatile Mass, Non Tender, Soft Back: Normal Inspection, No CVA Tenderness, No Vertebral Tenderness Extremity: Normal Capillary Refill, Normal Inspection, Normal Range of Motion, Non Tender, No Calf Tenderness, No Pedal Edema Neurologic/Psychiatric: Alert, Oriented x3, No Motor/Sensory Deficits, Normal Mood/Affect Skin: Normal Color, Warm/Dry Lymphatic: No Adenopathy Results Results/Procedures Labs Laboratory Tests 06/18/19 18:25 Patient resulted labs reviewed. Assessment/Plan Admission Diagnosis Assessment: Presumed pericardial effusion Chest pain Elevated LFT's negative viral hepatitis panel Plan: Effusion evaluation with ECHO and Cardiology consultation [facility] liver Admission Status: Observation Diagnosis/Problems Diagnosis/Problems (1) Pericardial effusion (2) Elevated liver enzymes (3) Chest pain SHELIA EVANGELISTA DO Jun 18, 2019 20:08
[2019-06-18 20:14] VITALS: BP 126/87
[2019-06-18 20:15] VITALS: BP 123/81
[2019-06-18 20:30] VITALS: BP 118/78
[2019-06-18] MEDS ORDERED: ONDANSETRON 4 MG/2 ML (SDV) Z0FRAN IVP PRN (20:30)
[2019-06-18] MEDS ORDERED: IBUPROFEN TABLET 200 MG TAB PO PRN (20:30)
[2019-06-18] MEDS ORDERED: hydrOXYzine (VISTARIL/ATARAX) 25 MG capsule/tablet PO PRN (20:30)
[2019-06-18 20:45] VITALS: BP 121/72
[2019-06-18] MEDS ORDERED: DOCUSATE SODIUM 100 MG (COLACE) CAP PO PRN (21:00)
[2019-06-18] MEDS ORDERED: MELATONIN 3 MG TABLET PO PRN (21:00)
[2019-06-18] MEDS ORDERED: CALCIUM CARBONATE 500 MG (TUMS) TAB.CHEW PO PRN (21:00)
[2019-06-18] MEDS ORDERED: diphenhydrAMINE 25 MG TAB (BENADRYL) PO PRN (21:00)
[2019-06-18] MEDS ORDERED: ALPRAZolam 0.25 MG (XANAX) TAB PO PRN (21:00)
[2019-06-18] MEDS ORDERED: ACETAMINOPHEN 500 MG TAB (TYLENOL) PO PRN (21:00)
[2019-06-18] MEDS ORDERED: HYDROcodone/APAP 5 MG/325 MG (LORTAB) TAB PO PRN (21:00)
[2019-06-18] MEDS ORDERED: LOPERAMIDE 2 MG (IMODIUM) TABLET PO PRN (21:00)
[2019-06-18] MEDS: SENNA W/DOCUSATE (SENOKOT S) TABLET PO SCH (21:13)
[2019-06-18 23:21] VITALS: BP 104/63
[2019-06-19 04:00] VITALS: BP 105/70
[2019-06-19 05:40] LABS: BASOPHILS % (AUTO) 0 % (0-10); EOSINOPHILS # (AUTO) 0.3 10^3/uL (0.0-0.3); EOSINOPHILS % (AUTO) 3 % (0-10); HEMATOCRIT 41 % (40-54); HEMOGLOBIN 14.3 G/DL (13.3-17.7); LYMPHOCYTES # (AUTO) 2.9 X 10^3 (1.0-4.0); LYMPHOCYTES % (AUTO) 32 % (12-44); MEAN CORPUSCULAR HEMOGLOBIN 30 PG (25-34); MEAN CORPUSCULAR HGB CONC 35 G/DL (32-36); MEAN CORPUSCULAR VOLUME 87 FL (80-99); MONOCYTES # (AUTO) 1.1 X 10^3 (0.0-1.0); MONOCYTES % (AUTO) 12 % (0-12); NEUTROPHILS # (AUTO) 4.9 X 10^3 (1.8-7.8); NEUTROPHILS % (AUTO) 53 % (42-75); PLATELET COUNT 258 10^3/uL (130-400); RED CELL DISTRIBUTION WIDTH 13.7 % (10.0-14.5); WHITE BLOOD COUNT 9.2 10^3/uL (4.3-11.0)
[2019-06-19 05:50] LABS: CHLORIDE 106 MMOL/L (98-107); POTASSIUM 3.9 MMOL/L (3.6-5.0); SODIUM 140 MMOL/L (135-145); TRIGLYCERIDES 92 MG/DL (<150); VLDL CHOLESTEROL 18 MG/DL (5-40)
[2019-06-19] MEDS: predniSONE 20 MG TAB PO SCH ×2 (05:57→09:26)
[2019-06-19 06:02] LABS: ALANINE AMINOTRANSFERASE 254 U/L (0-55); ALBUMIN 4.2 GM/DL (3.2-4.5); ALKALINE PHOSPHATASE 104 U/L (40-136); BILIRUBIN,TOTAL 0.6 MG/DL (0.1-1.0); BUN/CREATININE RATIO 19; CALCIUM 9.2 MG/DL (8.5-10.1); CARBON DIOXIDE 22 MMOL/L (21-32); CHOLESTEROL 160 MG/DL (< 200); CREATININE SERUM 1.01 MG/DL (0.60-1.30); GFR ESTIMATED > 60; GLUCOSE 92 MG/DL (70-105); HDL CHOLESTEROL 44 MG/DL (40-60); TOTAL PROTEIN 6.7 GM/DL (6.4-8.2)
[2019-06-19 08:00] VITALS: BP 112/62
--- NOTE | 2019-06-19 08:42 | Diagnostic Imaging Report ---
PROCEDURE: Gallbladder sonogram TECHNIQUE: Multiple real-time grayscale images were obtained over the right upper quadrant in various projections. INDICATION: Elevated liver enzymes Liver parenchyma is homogeneous with normal echotexture. Gallbladder is clear with no stones or wall thickening. The common duct is not dilated. The pancreas appears normal. Aorta and IVC are both patent. Right kidney measures 11.5 cm in length. There is no ascites. IMPRESSION: Negative liver and gallbladder ultrasound. Dictated by: Dictated on workstation # [id number]
--- NOTE | 2019-06-19 08:45 | Consultation-Cardiology ---
HPI-Cardiology Cardiology Consultation: Date of Consultation 06/19/19 Date of Admission Attending Physician Shelia Evangelista DO Admitting Physician [facility] Consulting Physician Ashtyn RAHMAN MD HPI: Time Seen by a Provider: 08:45 Chief Complaint: chest pain This is a 18 year old man who presents to the ER with chest pain, shortness of breath and dizziness. Chest pain is worse while lying flat and with inspiration. some improvement with prednisone and nsaids. No flu like symptoms. also has mild shortness of breath. No other symptoms. Occasional smoker. No drug abuse. Negative family history of SCD and CAD. Review of Systems-Cardiology Review of Systems Constitutional: As described under HPI; No As described under HPI, No no symptoms reported, No chills, No fever, No lightheadedness Eyes: No As described under HPI, No no symptoms reported, No blindness, No blurred vision, No contact lenses, No drainage, No decreased acuity, No foreign body sensation, No pain, No vision change Ears/Nose/Throat: No As described under HPI, No no symptoms reported, No chronic hearing loss, No ear discharge, No ear pain, No nasal drainage, No ulcerations Respiratory: No no symptoms reported; As described under HPI; No As described u nder HPI, No cough, No orthopnea; shortness of breath; No SOB with excertion Cardiovascular: No no symptoms reported; As described under HPI; No As described under HPI; chest pain; No edema, No irregular heart rate, No lightheadedness, No palpitations Gastrointestinal: No no symptoms reported, No As described under HPI, No abdomen distended, No abdominal pain, No blood streaked bowels, No constipation, No diarrhea, No nausea, No vomiting, No stool coloration changes Genitourinary: No As described under HPI, No burning, No dysuria, No discharge, No frequency, No flank pain, No hematuria, No urgency Skin: No rash, No skin related problems, No ulcerations Psychiatric/Neurological: No anxiety, No depression, No seizure, No focal weakness, No syncope Hematologic: No bleeding abnormalities [id number] Hx Patient Social History Marrital Status: single Employed/Student: student, full-time Alcohol Use: Occasionally Uses Recreational Drug Use: No Smoking Status: Light Tobacco Smoker 2nd Hand Smoke Exposure: No Recent Foreign Travel: No Recent Infectious Disease Expo: No Immunizations Up To Date Date of Pneumonia Vaccine: Nov 15, 2017 Date of Influenza Vaccine: Nov 15, 2018 Past Medical History PMH As described under Assessment. Allergies and Home Medications Allergies Coded Allergies: No Known Drug Allergies (Unverified , 06/11/19) Home Medications Acetaminophen 325 Mg Tablet, 650 MG PO Q8H PRN for PAIN-MILD (1-4), (Reported) Albuterol Sulfate 1 Puff Puff, 2 PUFF IH Q4H 1 PUFF = 90 MCG Prescribed by: ORQUIDEA METZGER on 06/11/19 1656 Albuterol Sulfate 1 Puff Puff, 2 PUFF IH Q4H PRN for SHORTNESS OF BREATH, (Reported) 1 PUFF = 90 MCG Dicyclomine HCl 20 Mg Tablet, 20 MG PO Q6H PRN for DIARRHEA, (Reported) PRN ABD PAIN AND DIARRHEA Hydroxyzine Pamoate 50 Mg Capsule, 50 MG PO BID PRN for ANXIETY, (Reported) Ibuprofen 400 Mg Tablet, 400 MG PO Q8H PRN for PAIN-MILD (1-4), (Reported) Ondansetron 4 Mg Tab.rapdis, 4 MG PO Q6H PRN for NAUSEA/VOMITING-1ST LINE, (Reported) Pantoprazole Sodium 40 Mg Tablet.dr, 40 MG PO DAILY, (Reported) Prednisone 20 Mg Tab, 40 MG PO DAILY, (Reported) TAKES 2 (20MG) DAILY Sertraline HCl 100 Mg Tablet, 100 MG PO 1400, (Reported) Patient Home Medication List Home Medication List Reviewed: Yes Physical Exam-Cardiology Physical Exam Vital Signs/I&O 06/18/19 06/19/19 06/19/19 06/19/19 23:21 01:00 04:00 07:00 Temp 37.2 36.9 Pulse 99 85 56 61 Resp 18 16 B/P (MAP) 104/63 (77) 105/70 (82) Pulse Ox 99 100 O2 Delivery Room Air Room Air 06/19/19 06/19/19 08:00 08:00 Temp 36.8 Pulse 57 Resp 16 B/P (MAP) 112/62 (79) Pulse Ox 97 100 O2 Delivery Room Air Room Air 06/19/19 00:00 Intake Total 200 ml Balance 200 ml Capillary Refill : Less Than 3 Seconds Constitutional: appears stated age, AAO x 3; No apparent distress; well- developed, well-nourished HEENT: PERRL; No discharge; hearing is well preserved, oral hygience is good; No ulceration, No xanthelasmas are seen Neck: No carotid bruit; carotid pulses are 2 + bilaterally Respiratory: chest is bilaterally symmetric, lungs clear to percussion Cardiovascular: regular rate-rhythm, S1 and S2 Gastrointestinal: soft, audible bowel sounds; No spleenomegaly Rectal: deferred Extremities: normal range of motion, non-tender, normal inspection; No clubbing, No cyanosis; no lower extremity edema bilateral; No significant edema Neurologic/Psychiatric: no motor/sensory deficits, alert, normal mood/affect, oriented x 3, power is 5/5 both on sides Skin: normal color; No rash, No ulcerations Data Review Labs Laboratory Tests 06/18/19 18:25: White Blood Count 11.9H, Red Blood Count 4.98, Hemoglobin 15.3, Hematocrit 43, Mean Corpuscular Volume 86, Mean Corpuscular Hemoglobin 31, Mean Corpuscular Hemoglobin Concent 36, Red Cell Distribution Width 13.7, Platelet Count 269, Mean Platelet Volume 8.9, Neutrophils (%) (Auto) 79H, Lymphocytes (%) (Auto) 12, Monocytes (%) (Auto) 8, Eosinophils (%) (Auto) 0, Basophils (%) (Auto) 0, Neutrophils # (Auto) 9.5H, Lymphocytes # (Auto) 1.4, Monocytes # (Auto) 1.0, Eosinophils # (Auto) 0.0, Basophils # (Auto) 0.0, Erythrocyte Sedimentation Rate 1, Prothrombin Time 13.5, INR Comment 1.0, Activated Partial Thromboplast Time 27, Sodium Level 140, Potassium Level 4.1, Chloride Level 105, Carbon Dioxide Level 24, Anion Gap 11, Blood Urea Nitrogen 18, Creatinine 0.89, Estimat Glomerular Filtration Rate > 60, BUN/Creatinine Ratio 20, Glucose Level 105, Calcium Level 9.6, Corrected Calcium , Magnesium Level 2.2, Total Bilirubin 0.8, Aspartate Amino Transf (AST/SGOT) 82H, Alanine Aminotransferase (ALT/SGPT) 303H, Alkaline Phosphatase 104, Myoglobin 25.2, Troponin I < 0.028, C-Reactive Protein High Sensitivity 0.02, B-Type Natriuretic Peptide < 10.0, Total Protein 7.6, Albumin 5.0H 06/18/19 18:30: Urine Opiates Screen NEGATIVE, Urine Oxycodone Screen NEGATIVE, Urine Methadone Screen NEGATIVE, Urine Propoxyphene Screen NEGATIVE, Urine Barbiturates Screen NEGATIVE, Ur Tricyclic Antidepressants Screen NEGATIVE, Urine Phencyclidine Screen NEGATIVE, Urine Amphetamines Screen NEGATIVE, Urine Methamphetamines Screen NEGATIVE, Urine Benzodiazepines Screen NEGATIVE, Urine Cocaine Screen NEGATIVE, Urine Cannabinoids Screen NEGATIVE 06/19/19 05:11: White Blood Count 9.2, Red Blood Count 4.70, Hemoglobin 14.3, Hematocrit 41, Mean Corpuscular Volume 87, Mean Corpuscular Hemoglobin 30, Mean Corpuscular Hemoglobin Concent 35, Red Cell Distribution Width 13.7, Platelet Count 258, Mean Platelet Volume 9.0, Neutrophils (%) (Auto) 53, Lymphocytes (%) (Auto) 32, Monocytes (%) (Auto) 12, Eosinophils (%) (Auto) 3, Basophils (%) (Auto) 0, Neutrophils # (Auto) 4.9, Lymphocytes # (Auto) 2.9, Monocytes # (Auto) 1.1H, Eosinophils # (Auto) 0.3, Basophils # (Auto) 0.0, Sodium Level 140, Potassium Level 3.9, Chloride Level 106, Carbon Dioxide Level 22, Anion Gap 13, Blood Urea Nitrogen 19H, Creatinine 1.01, Estimat Glomerular Filtration Rate > 60, BUN/Creatinine Ratio 19, Glucose Level 92, Calcium Level 9.2, Corrected Calcium 9.0, Total Bilirubin 0.6, Aspartate Amino Transf (AST/SGOT) 68H, Alanine Aminotransferase (ALT/SGPT) 254H, Alkaline Phosphatase 104, Troponin I 0.042H, Total Protein 6.7, Albumin 4.2, Triglycerides Level 92, Cholesterol Level 160, LDL Cholesterol Direct 108, VLDL Cholesterol 18, HDL Cholesterol 44 ECG Impression ECG Initial ECG Rhythm: Normal Sinus Initial ECG Impression: Normal A/P-Cardiology Assessment/Admission Diagnosis Atypical Chest pain, Positive cardiac enzymes, Shortness of breath, Acute Myopericarditis, Acute hepatitis Plan - Very likely acute viral myopericarditis which should be self limiting. Already on steroids and NSAIDs. discussed at length with the patient and mother. - Echo done 06/19/2019 - normal LVEF, no valve disease, no pericardial effusion. - Shortness of breath - no evidence of CHF. - Elevated LFTs - defer to primary team. Thank you for your consultation. Please call me if you have any questions. Eduardo Rahman MD, FACP, FACC, FSCAI, FHRS, CCDS Interventional Cardiology Cardiac Electrophysiology Vascular Medicine and Endovascular Interventions Clinical Quality Measures DVT/VTE Risk/Contraindication: RFS Level Per Nursing on Admit: 0=No Risk/No VTE PPX Ashtyn RAHMAN MD Jun 19, 2019 08:45
[2019-06-19] MEDS ORDERED: PANT40TA2 PO (08:54)
[2019-06-19] MEDS ORDERED: ONDA4TAB11 PO (08:54)
[2019-06-19] MEDS ORDERED: SERT100T8 PO (08:54)
[2019-06-19] MEDS ORDERED: PRD20T PO (08:54)
[2019-06-19] MEDS ORDERED: ACET325T38 PO (08:54)
[2019-06-19] MEDS ORDERED: RT-ALBUINH IH (08:54)
[2019-06-19] MEDS ORDERED: DICY20TA10 PO (08:54)
[2019-06-19] MEDS ORDERED: IBUP-1779 PO (08:54)
--- NOTE | 2019-06-19 08:55 | NUR ---
SPOKE WITH THE PT WELL GOING THRU THE EXT MED HISTORY TO COMPLETE THE MED REC. PT WAS ABLE TO LIST HIS MEDS AND HOW/WHEN HE TAKES THEM. MOST MEDS (DICYCLOMINE, PREDNISONE, PROTONIX AND ZOFRAN) WERE JUST STARTED RECENTLY AND PT INDICATED HE ONLY GOT A FEW DOSES IN BEFORE HE WAS ADMITTED. OTC MEDS: TYLENOL PRN
[2019-06-19] MEDS ORDERED: PANTOPRAZOLE 40 MG (PROTONIX) TAB PO SCH (09:00)
[2019-06-19] MEDS: SENNA W/DOCUSATE (SENOKOT S) TABLET PO SCH (09:26)
[2019-06-19] MEDS ORDERED: ACHD5005 PO (10:34)
--- NOTE | 2019-06-19 10:34 | Discharge Summary ---
Discharge Summary Hospital Course Was the Problem List Reviewed?: Yes Problems/Dx: (1) Acute myopericarditis (2) Elevated liver enzymes (3) Chest pain Hospital Course Date of Admission: Jun 18, 2019 at 18:05 Admission Diagnosis : [facility] Date [facility]: 06/19/19 Discharge Diagnosis: Myocarditis Hospital Course: Hospital course: Pt had an uneventful hospital course, Dr. Rahman evaluated the echo showing no pericardial effusion, Troponin did elevate and myocarditis was diagnosed and pt was deemed stable for DC. No physical activity or exercise for thee months and follow up with Dr. Orozco and will be monitored closely in the meantime. Updated pt and his mother. Labs and Pending Lab Test: Laboratory Tests 06/18/19 18:25: White Blood Count 11.9H, Red Blood Count 4.98, Hemoglobin 15.3, Hematocrit 43, Mean Corpuscular Volume 86, Mean Corpuscular Hemoglobin 31, Mean Corpuscular Hemoglobin Concent 36, Red Cell Distribution Width 13.7, Platelet Count 269, Mean Platelet Volume 8.9, Neutrophils (%) (Auto) 79H, Lymphocytes (%) (Auto) 12, Monocytes (%) (Auto) 8, Eosinophils (%) (Auto) 0, Basophils (%) (Auto) 0, Neutrophils # (Auto) 9.5H, Lymphocytes # (Auto) 1.4, Monocytes # (Auto) 1.0, Eosinophils # (Auto) 0.0, Basophils # (Auto) 0.0, Erythrocyte Sedimentation Rate 1, Prothrombin Time 13.5, INR Comment 1.0, Activated Partial Thromboplast Time 27, Sodium Level 140, Potassium Level 4.1, Chloride Level 105, Carbon Dioxide Level 24, Anion Gap 11, Blood Urea Nitrogen 18, Creatinine 0.89, Estimat Glomerular Filtration Rate > 60, BUN/Creatinine Ratio 20, Glucose Level 105, Calcium Level 9.6, Corrected Calcium , Magnesium Level 2.2, Total Bilirubin 0.8, Aspartate Amino Transf (AST/SGOT) 82H, Alanine Aminotransferase (ALT/SGPT) 303H, Alkaline Phosphatase 104, Myoglobin 25.2, Troponin I < 0.028, C-Reactive Protein High Sensitivity 0.02, B-Type Natriuretic Peptide < 10.0, Total Protein 7.6, Albumin 5.0H, Hepatitis A IgM Antibody [Pending], Hepatitis B Surface Antigen [Pending], Hepatitis B Core IgM Antibody [Pending], Hepatitis C Antibody [P ending] 06/18/19 18:30: Urine Opiates Screen NEGATIVE, Urine Oxycodone Screen NEGATIVE, Urine Methadone Screen NEGATIVE, Urine Propoxyphene Screen NEGATIVE, Urine Barbiturates Screen NEGATIVE, Ur Tricyclic Antidepressants Screen NEGATIVE, Urine Phencyclidine Screen NEGATIVE, Urine Amphetamines Screen NEGATIVE, Urine Methamphetamines Screen NEGATIVE, Urine Benzodiazepines Screen NEGATIVE, Urine Cocaine Screen NEGATIVE, Urine Cannabinoids Screen NEGATIVE 06/19/19 05:11: White Blood Count 9.2, Red Blood Count 4.70, Hemoglobin 14.3, Hematocrit 41, Mean Corpuscular Volume 87, Mean Corpuscular Hemoglobin 30, Mean Corpuscular Hemoglobin Concent 35, Red Cell Distribution Width 13.7, Platelet Count 258, Mean Platelet Volume 9.0, Neutrophils (%) (Auto) 53, Lymphocytes (%) (Auto) 32, Monocytes (%) (Auto) 12, Eosinophils (%) (Auto) 3, Basophils (%) (Auto) 0, Neutrophils # (Auto) 4.9, Lymphocytes # (Auto) 2.9, Monocytes # (Auto) 1.1H, Eosinophils # (Auto) 0.3, Basophils # (Auto) 0.0, Sodium Level 140, Potassium Level 3.9, Chloride Level 106, Carbon Dioxide Level 22, Anion Gap 13, Blood Urea Nitrogen 19H, Creatinine 1.01, Estimat Glomerular Filtration Rate > 60, BUN/Creatinine Ratio 19, Glucose Level 92, Calcium Level 9.2, Corrected Calcium 9.0, Total Bilirubin 0.6, Aspartate Amino Transf (AST/SGOT) 68H, Alanine Aminotransferase (ALT/SGPT) 254H, Alkaline Phosphatase 104, Troponin I 0.042H, Total Protein 6.7, Albumin 4.2, Triglycerides Level 92, Cholesterol Level 160, LDL Cholesterol Direct 108, VLDL Cholesterol 18, HDL Cholesterol 44 Home Meds Active Proair Hfa (Albuterol Sulfate) 1 Puff Puff 2 Puff IH Q4H 1 PUFF = 90 MCG Reported Tylenol (Acetaminophen) 325 Mg Tablet 650 Mg PO Q8H PRN Proair Hfa (Albuterol Sulfate) 1 Puff Puff 2 Puff IH Q4H PRN 1 PUFF = 90 MCG Sertraline HCl 100 Mg Tablet 100 Mg PO 1400 Ibuprofen 400 Mg Tablet 400 Mg PO Q8H PRN MDD 1200 MG Ondansetron Odt (Ondansetron) 4 Mg Tab.rapdis 4 Mg PO Q6H PRN Protonix (Pantoprazole Sodium) 40 Mg Tablet.dr 40 Mg PO DAILY Prednisone 20 Mg Tab 40 Mg PO DAILY TAKES 2 (20MG) DAILY Dicyclomine HCl 20 Mg Tablet 20 Mg PO Q6H PRN PRN ABD PAIN AND DIARRHEA Hydroxyzine Pamoate 50 Mg Capsule 50 Mg PO BID PRN Assessment/Pt Instructions [facility] Dr Orozco 06/25/19 Discharge Planning: <30 minutes discharge planning Discharge Instructions Discharge Diet: No Restrictions Activity as Tolerated: No (no physical exertion x 3 months) Discharge Physical Examination Vital Signs Vital Signs Date Time Temp Pulse Resp B/P (MAP) Pulse Ox O2 Delivery O2 Flow Rate FiO2 06/19/19 08:00 100 Room Air 06/19/19 08:00 36.8 57 16 112/62 (79) General Appearance: No Apparent Distress, WD/WN Allergies: Coded Allergies: No Known Drug Allergies (Unverified , 06/11/19) Discharge Summary Date of Admission Jun 18, 2019 at 18:05 Date of Discharge Discharge Date: Jun 19, 2019 Admission Diagnosis Assessment: Presumed pericardial effusion Chest pain Elevated LFT's negative viral hepatitis panel Plan: Effusion evaluation with ECHO and Cardiology consultation [facility] liver Discharge Diagnosis (1) Pericardial effusion (2) Elevated liver enzymes (3) Chest pain Clinical Quality Measures DVT/VTE Risk/Contraindication: RFS Level Per Nursing on Admit: 0=No Risk/No VTE PPX CHELSEA SINCLAIR DO Jun 19, 2019 10:34
[2019-06-19 12:00] VITALS: BP 107/67
[2019-06-19 13:30] VITALS: BP 107/67
== END 2019-06-19 14:00 | disposition home or self-care (01) ==
LOC: EDUNIT# 17:50 → ER 17:52 → 4TH 18:05
PROVIDERS: ADMIT Internal Medicine; ATTEND Internal Medicine
DX: I30.9 Acute pericarditis, unspecified (principal); I31.1 Chronic constrictive pericarditis; R10.13 Epigastric pain; R74.8 Abnormal levels of other serum enzymes; F17.200 Nicotine dependence, unspecified, uncomplicated; F41.9 Anxiety disorder, unspecified; Z79.899 Other long term (current) drug therapy
CPT/HCPCS: 36415; 71046; 76705; 80053; 80061; 80074; 80306; 83735; 83874; 83880; 84484; 85025; 85610; 85652; 85730; 86141; 93005; 93041; 93306; G0378